=== PATIENT | female | born 2000 | race Caucasian/White ===

== ENCOUNTER 2023-08-16 16:40 | Outpatient (CLI) | payer BC, SELFPAY | END 2023-08-16 16:41 | disposition home or self-care (01) | LOC: NFLDREF 08-17 06:58 | PROVIDERS: PCP Pediatrics; Referring Provider Pediatrics; Visit Provider Registered Nurse | DX: N91.5 Oligomenorrhea, unspecified (principal); R53.83 Other fatigue | CPT/HCPCS: 80061; 82947; 83498; 84146; 84270; 84402; 84403; 84443 ==

== ENCOUNTER 2024-04-12 17:46 | Outpatient (CLI) | payer BC, SELFPAY | END 2024-04-12 17:47 | disposition home or self-care (01) | LOC: NFLDUCREF 17:47 | PROVIDERS: PCP Pediatrics; Visit Provider Nurse Practitioner Family | DX: R50.9 Fever, unspecified (principal) | CPT/HCPCS: 86618; 87086 ==

== ENCOUNTER 2024-07-31 16:21 | Outpatient (CLI) | payer BC, SELFPAY | END 2024-07-31 16:22 | disposition home or self-care (01) | PROVIDERS: PCP Pediatrics; Visit Provider Registered Nurse | DX: Z11.3 Encounter for screening for infections with a predominantly sexual mode of transmission (principal); Z13.220 Encounter for screening for lipoid disorders | CPT/HCPCS: 80061; 87491; 87591 ==